=== PATIENT | female | born 1990 ===

== ENCOUNTER 2021-11-26 11:13 | Outpatient (REF) | payer OTHER, SELFPAY ==
[2021-11-26 15:16] LABS: CT PCR NOT DETECTED (Not Detect.); NG PCR NOT DETECTED (Not Detect.)
[2021-11-27 14:19] LABS: BV Int Neg Control Negative (Negative); BV Int Pos Control Positive (Positive)
== END 2021-11-26 11:14 | disposition home or self-care (01) ==
LOC: HO.LAB 11:13
PROVIDERS: Visit Provider Advanced Practice Midwife
DX: Z01.419 Encounter for gynecological examination (general) (routine) without abnormal findings (principal); N94.6 Dysmenorrhea, unspecified
CPT/HCPCS: 87480; 87491; 87510; 87591; 87660; 88142

== ENCOUNTER 2022-01-09 14:17 | Outpatient (REF) | payer OTHER, SELFPAY ==
--- NOTE | ~2022-01-09 | US_ITS ---
EXAMINATION: US PELVIS CLINICAL INFORMATION: Hypertrophy of uterus, last menstrual period 12/27/2021 COMPARISON: None TECHNIQUE: Ultrasound of the pelvis is performed using both transabdominal and transvaginal transducers along with Doppler. Transvaginal imaging is performed due to inadequate visualization transabdominally. FINDINGS: The uterus is heterogeneous and measures 12.9 x 8.6 x 12.6 cm. Multiple uterine fibroids, largest 7.9 x 6.9 x 8.4 cm and 7.0 x 7.0 x 5.5 cm. 3.7 x 3.6 x 4.1 cm fibroid was seen only on transabdominal ultrasound images. Endometrium difficult to visualize due to multiple fibroids. Imaged segment of endometrium was seen only on transabdominal ultrasound images and demonstrates thickness of 1.4 cm. No significant free fluid. Left ovary is unremarkable and measures 3.8 x 1.9 x 2.1 cm, volume 7.9 mL. Right ovary measures 3.9 x 3.8 x 2.8 cm, volume 21.7 mL and was better seen on transabdominal ultrasound images and was difficult to see on transvaginal ultrasound images. 2.4 x 2.6 x 2.7 cm complex right ovarian cyst with thick garcia, possibly a corpus luteum. US/US pelvic and transvaginal IMPRESSION: 1. Enlarged fibroid uterus with largest fibroid 7.9 cm. Uterine volume 731.91 mL. 2. Endometrium difficult to visualize, but imaged segment measures approximately 1.4 cm on transabdominal ultrasound images. 3. Right ovarian 2.7 cm complex cyst may represent a corpus luteum. 4. Unremarkable left ovary. 5. No significant free fluid.
== END 2022-01-09 14:18 | disposition home or self-care (01) ==
LOC: HO.US 14:17
PROVIDERS: Visit Provider Advanced Practice Midwife
DX: N93.9 Abnormal uterine and vaginal bleeding, unspecified (principal); N94.6 Dysmenorrhea, unspecified; N85.2 Hypertrophy of uterus
CPT/HCPCS: 76830; 76856

== ENCOUNTER 2023-05-22 13:30 | Outpatient (AMB) | payer OTHER, SELFPAY ==
[2023-05-22 13:34] VITALS: BP 110/84; PULSE 100; O2SAT 97; BMI 26.9
--- NOTE | 2023-05-22 13:34 | MHC.PC.OV ---
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 Accompanied by: Self / Same As Patient Allergies No Known Allergies Allergy (Verified 05/22/23 13:54) Medication List - Last Reconciled 05/22/23 by Deshaun Stone MD albuterol sulfate 90 mcg/actuation 2 puffs inhalation Q4-6H PRN 30 days cetirizine (Zyrtec) 10 mg PO DAILY PRN dextroamphetamine-amphetamine 30 mg 30 mg PO DAILY 28 days Tobacco use date assessed: 05/22/23 Dental Screening Dental Screen Date: 05/22/23 Did you have a dental visit in the last 12 months?: No Did you have a dental problem in the last 6 months where you did not have access to dental care?: No Was dental information given to patient?: Patient has dentist HPI PE HPI Details Patient comes in today for her annual physical examination - has not been back since July 2021 Patient states that she feels okay but has been experiencing some on and off neck pain and tightness lately States that she has been cracking her neck a lot lately and it feels good doing so Has felt at times recently that she needs a good massage on her neck She denies any history of neck injury or trauma Patient denies any headaches or dizziness Denies any chest pains, no SOB No nausea/vomiting, no abdominal pain No change in bowel habits noted Denies any acute urinary symptoms States that she had a laparoscopic hysterectomy done at [facility] last year in January 2023 for heavy menstrual bleeding and uterine fibroids but they left her ovaries alone Adds that she would like to try switching over to the extended release formulation for her Adderall when her Rx is due for her next refill Recalls taking the ER formulation in the past and does not remember why she switched but now feels that she does not need the medication as much towards the latter part of the day and feels that switching over to the ER version might be better for her [facility] Medical History (Updated 05/22/23 @ 14:20 by Deshaun Stone MD) Overweight (BMI 25.0-29.9) Complex cyst of right ovary Fibroids Abnormal uterine bleeding (AUB) COVID-19 Asthma ADHD (attention deficit hyperactivity disorder) Surgical History (Updated 05/22/23 @ 14:16 by Deshaun Stone MD) S/P laparoscopic hysterectomy (~01/2023) Family History Father High cholesterol Mother No problems noted. Maternal Grandmother Lung cancer Diabetes Maternal Grandfather Diabetes Hypertension Paternal Grandmother Hypertension High cholesterol Paternal Grandfather Asthma Brother No problems noted. 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 1. Little interest or pleasure in doing things: not at all 2. Feeling down, depressed, or hopeless: not at all 3. Trouble falling or staying asleep, or sleeping too much: not at all 4. Feeling tired or having little energy: not at all 5. Poor appetite or overeating: not at all 6. Feeling bad about yourself - or that you are a failure or have let yourself or your family down: not at all 7. Trouble concentrating on things, such as reading the newspaper or watching television: not at all 8. Moving or speaking so slowly that other people could have noticed. Or the opposite - being so fidgety or restless that you have been moving around a lot more than usual: not at all 9. Thoughts that you would be better off or of hurting yourself in some way: not at all Total score: 0 Depression Screening Interpretation: Negative Depression Screening Done: Yes 40861 - PHQ-9 Billing: Yes Source: Developed by Drs. Ricardo Garnett, Ping B.W. Pete Otero and colleagues, with an educational genaro from [employer]. Thrive Questionnaire Date Thrive assessed: 05/22/23 I am a: Patient What is your living situation today?: I have a steady place to live Within the past 12 months, did the food you bought not last and you didn't have the money to get more?: Never true Within the past 12 months, did you worry whether your food would run out before you got money to buy more?: Never true Do you have trouble paying for medicines?: No Do you have trouble getting transportation to medical appointments?: No Do you have trouble paying your heating and electricity bill?: No Do you have trouble taking care of your child, family member or friend?: No Do you have trouble with day-to-day activities such as bathing, preparing meals, shopping, managing finances, etc.?: No Are you currently unemployed and looking for a job?: No Are you interested in more education?: No Please select the resources that you would like help with: None Currently or been in a relationship where the following occur: no concerns reported THRIVE Score: 0 AUDIT C Alcohol Use Questionnaire (AUDIT-C) 1. How often do you have a drink containing alcohol?: 2-3 times a week 2. How many drinks containing alcohol do you have on a typical day when you are drinking?: 1 or 2 3. How often do you have six or more drinks on one occasion?: Never Total Score: 3 Score Reviewed/Action Taken: Yes DESIRAE-7 AMB Questionnaire DESIRAE-7 Date DESIRAE - 7 assessed: 05/22/23 Feeling nervous, anxious, or on edge: 0 = Not at all Not being able to stop or control worryin = Not at all Worrying too much about different things: 0 = Not at all Trouble relaxin = Not at all Being so restless that it is hard to sit still: 0 = Not at all Becoming easily annoyed or irritable: 0 = Not at all Feeling afraid as if something awful might happen: 0 = Not at all Total DESIRAE-7 score (0-4 normal; 5-9 mild; 10-14 moderate; 15-21 severe): 0 Source: Developed by Drs. Ricardo Garnett, Pete Pires and colleagues, with an educational genaro from [employer]. Review of Systems Const Denies chills, Denies fatigue, Denies fever(s), Denies headache(s) and Denies malaise Eyes Denies blurry vision, Denies change in vision, Denies irritation and Denies itchy eyes ENT Denies dysphagia, Denies dizziness, Denies otalgia, Denies headache(s), Denies nasal congestion, Reports neck pain (on and off lately), Denies odynophagia, Denies sinus pain and Denies sore throat Card Denies chest pain, Denies rapid heart rate, Denies irregular heart rhythm, Denies palpitations and Denies dyspnea Resp Denies chest congestion, Denies cough, Denies dyspnea and Denies wheezing GI Denies abdominal pain, Denies bloating, Denies constipation, Denies dysphagia, Denies heartburn, Denies diarrhea, Denies nausea, Denies odynophagia and Denies vomiting Denies hematuria, Denies urinary frequency, Denies dysuria, Denies urinary incontinence and Denies urinary urgency Musc Denies back pain, Denies arthralgias, Denies joint swelling, Denies muscle weakness and Reports neck pain (on and off lately) Skin/Breast Denies breast pain, Denies breast mass, Denies change in pigmentation, Denies lesions, Denies rash and Denies unusual bruising Neuro Denies dizziness, Denies headache(s) and Denies paresthesias Psych Denies anxiety and Denies depression Endo Denies fatigue and Denies palpitations Elpidio/Lymph Denies easy bruising Aller/Immun Denies itchy eyes and Denies wheezing Physical exam (Primary Care) Vital Signs: Last Vital Signs Pulse 100 05/22/23 13:34 BP 110/84 05/22/23 13:34 Pulse Ox 97 05/22/23 13:34 Oxygen Delivery Method Room Air 05/22/23 13:34 BMI result Body Mass Index 26.9 Tobacco/Smoking Status: Tobacco use Status Tobacco use date assessed 05/22/23 05/22/23 13:38 Patient Tobacco Use Status Never used Tobacco 05/22/23 13:38 e-Cigarette/Vaping Use Never Used 05/22/23 13:38 PHQ-9: PHQ-9 Score PHQ-9: Total score 0 05/22/23 13:38 Depression Screening Interpretation: Negative Thrive Assessment: Date of Thrive Assessment Date Thrive assessed 05/22/23 05/22/23 13:38 Currently or been in a relationship where the following occur: no concerns reported Const General: no acute distress, alert and awake Orientation/consciousness: patient oriented x3 HENMT Head: Yes normocephalic and Yes atraumatic Ears: external ears normal, TM's normal bilaterally and EAC's normal General nose exam: No nasal discharge present Face and sinus: Yes normal facial exam and Yes sinuses nontender Teeth and gingiva: dentition normal Throat: Yes posterior oropharynx normal and Yes tonsils normal (no TP congestion) Eyes Eyelids: Yes eyelids normal Conjunctivae: conjunctivae normal Pupils: Equal, round and reactive pupils present EOM: EOMs intact bilaterally Neck Neck: Yes no lymphadenopathy and Yes supple Thyroid: Thyroid normal Resp Auscultation: clear to auscultation bilaterally, no rales and no wheezes Cardio Rate: regular rate Rhythm: regular rhythm Heart sounds: no murmurs GI Palpation (GI): Soft to palpation, nontender and No hepatosplenomegaly present Auscultation: normal bowel sounds General: Yes no CVA tenderness Back/Spine/Pelvis Back: no CVA tenderness Cervical Spine: cervical muscular tenderness Thoracic/Lumbar Spine: thoracic and lumbar spine normal to inspection Skin Lesions: no lesions Rashes: no rashes Neuro General: patient oriented x3, moves all extremities, no focal motor deficits and CN's II-XI intact bilaterally Cranial nerves: Yes Equal, round and reactive pupils present Cognition (Neuro): normal cognition Gait exam (Neuro): Normal gait present Extrem General: Yes no clubbing, cyanosis or edema Assessment and Plan Assessment & Plan (1) Annual physical exam: Code(s): Z00.00 - Encounter for general adult medical examination without abnormal findings Plan: Check labs - patient states that she will try to get these done at [facility] (where she works) [place] She had a hysterectomy done back in January 2023 and reportedly no longer has to keep up with routine pap smears but she will continue to follow up with her senior counsel regularly (2) Asthma: Code(s): J45.909 - Unspecified asthma, uncomplicated Qualifiers: Asthma severity: mild Asthma persistence: intermittent Asthma complication type: uncomplicated Qualified Code(s): J45.20 - Mild intermittent asthma, uncomplicated Plan: Stable - continue Albuterol HFA 2 inhalations every 6 hours only as needed (3) ADHD (attention deficit hyperactivity disorder): Code(s): F90.9 - Attention-deficit hyperactivity disorder, unspecified type Qualifiers: Attention deficit-hyperactivity disorder type: unspecified Qualified Code(s): F90.9 - Attention-deficit hyperactivity disorder, unspecified type Plan: Continue Adderall 30 mg QD but per request, will try switching her back to the XR formulation when her Rx is due for refill in a few weeks (4) Neck pain: Code(s): M54.2 - Cervicalgia Plan: Advised that this is most likely musculoskeletal pain/strain that is a result of poor posture recently and she should try to look into where she is getting into trouble here (at home or at work) Have advised patient NOT to crack her neck as doing so will only lead to problems with her cervical spine in the future Discussed that she can try applying some warm compress to the back of her neck PRN or try some OTC pain patches like Salonpas, Aspercreme or BenGay and using some of the commercially available massage guns can also be helpful She declines offer to provide her with Rx for muscle relaxants (5) Overweight (BMI 25.0-29.9): Code(s): E66.3 - Overweight Plan: Reinforced diet/exercise/lose weight - advised that she has been slowly but steadily gaining some weight over the years Plan To return in 1 year for her next annual physical examination Orders: Orders Comprehensive [place]. Panel Fast Today E78.00 - Pure hypercholesterolemia, unspecified, Z00.00 - Encounter for general adult medical examination without abnormal findings Lipid Panel Today E78.00 - Pure hypercholesterolemia, unspecified, Z00.00 - Encounter for general adult medical examination without abnormal findings UA CC w/rflx Micro + Cult Today R30.0 - Dysuria, Z00.00 - Encounter for general adult medical examination without abnormal findings Vitamin D 25-OH Total Today E55.9 - Vitamin D deficiency, unspecified, Z00.00 - Encounter for general adult medical examination without abnormal findings Complete Blood Count Auto Diff Today D64.9 - Anemia, unspecified, Z00.00 - Encounter for general adult medical examination without abnormal findings TSH reflex Free T4 Today E78.00 - Pure hypercholesterolemia, unspecified, Z00.00 - Encounter for general adult medical examination without abnormal findings Medications: New dextroamphetamine-amphetamine 30 mg ER (Adderall XR) Partial Fill upon patient request. 30 mg PO QAM 30 caps 0RF Discontinued dextroamphetamine-amphetamine 30 mg Discontinued Reason: Doctor's Order 30 mg PO DAILY 28 days 28 tabs 0RF F90.9 - Attention-deficit hyperactivity disorder, unspecified type Coding Level of Care Code Est Pt Prev Care [id number]([id number]) Diagnoses Annual physical exam Z00.00 Mild intermittent asthma without complication J45.20 Asthma severity: mild Asthma persistence: intermittent Asthma complication type: uncomplicated Attention deficit hyperactivity disorder (ADHD), unspecified ADHD type F90.9 Attention deficit-hyperactivity disorder type: unspecified Neck pain M54.2 Overweight (BMI 25.0-29.9) E66.3
== END 2023-05-22 14:09 | disposition home or self-care (01) ==
PROVIDERS: PCP Internal Medicine; Visit Provider Internal Medicine
DX: Z00.00 Encounter for general adult medical examination without abnormal findings (principal); J45.20 Mild intermittent asthma, uncomplicated; F90.9 Attention-deficit hyperactivity disorder, unspecified type; M54.2 Cervicalgia; E66.3 Overweight
CPT/HCPCS: 99395

== ENCOUNTER 2024-04-14 12:06 | Outpatient (AMB) | payer OTHER, SELFPAY ==
--- NOTE | 2024-04-14 12:12 | A.OFFPC_ITS ---
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 Accompanied by: Self / Same As Patient Allergies No Known Allergies Allergy (Verified 04/17/24 16:13) Medication List - Last Reconciled 04/17/24 by Deshaun Stone MD albuterol sulfate 90 mcg/actuation 2 puffs inhalation Q4-6H PRN 30 days cetirizine (Zyrtec) 10 mg PO DAILY PRN dextroamphetamine-amphetamine 30 mg ER (Adderall XR) 30 mg PO QAM Tobacco use date assessed: 05/22/23 Dental Screening Dental Screen Date: 05/22/23 HPI Health 04/11 cyst on sternum HPI Details Patient comes in today for evaluation of a draining cyst over anterior lower chest wall/epigastric area States that she first noticed the presence of the aforementioned cyst about a year ago and that every now and then, it would get inflamed and irritated but would usually subside after a few days without any intervention States that the cyst was again inflamed for the past 2-3 weeks and about 1 week ago, it spontaneously ruptured and drained some purulent fluid She went to a local urgent care facility in [place] a few days ago and was prescribed some unrecalled antibiotics that she is supposed to take for 14 days and which she is still currently on Recalls that she was also advised that she should get a referral from her PCP to have this cyst evaluated and possibly excised Patient states that she feels okay otherwise She denies any fever, headaches or dizziness Denies any chest pains, no shortness of breath No nausea/vomiting, no abdominal pain No change in bowel habits noted [facility] Medical History (Updated 04/14/24 @ 12:28 by Deshaun Stone MD) Overweight (BMI 25.0-29.9) Complex cyst of right ovary Fibroids Abnormal uterine bleeding (AUB) COVID-19 Asthma ADHD (attention deficit hyperactivity disorder) Surgical History S/P laparoscopic hysterectomy (~01/2023) Family History (Updated 04/14/24 @ 12:13 by ROSALVA Ramon) Father High cholesterol Mother No problems noted. Maternal Grandmother Lung cancer Diabetes Maternal Grandfather Diabetes Hypertension Paternal Grandmother Hypertension High cholesterol Paternal Grandfather Asthma Brother No problems noted. 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 Ricardo Garnett, Ping Otero, Pete River and colleagues, with an educational genaro from [employer]. Review of Systems Const Denies fatigue, Denies fever(s) and Denies headache(s) ENT Denies dysphagia, Denies dizziness, Denies headache(s), Denies neck pain and Denies sore throat Card Denies chest pain, Denies palpitations and Denies dyspnea Resp Denies chest congestion, Denies cough and Denies dyspnea GI Denies abdominal pain, Denies constipation, Denies dysphagia, Denies heartburn, Denies diarrhea, Denies nausea and Denies vomiting Denies difficulty voiding, Denies nocturia and Denies dysuria Musc Denies back pain and Denies neck pain Skin/Breast Details: (+) draining cyst over the lower sternal area Denies rash Neuro Denies dizziness and Denies headache(s) Endo Denies fatigue and Denies palpitations Physical exam (Primary Care) Vital Signs: Last Vital Signs BP 110/82 04/14/24 12:15 BMI result Body Mass Index 27.1 Tobacco/Smoking Status: Tobacco use Status Tobacco use date assessed 05/22/23 04/14/24 12:18 Patient Tobacco Use Status Never used Tobacco 04/14/24 12:18 e-Cigarette/Vaping Use Never Used 04/14/24 12:18 Thrive Assessment: Date of Thrive Assessment Date Thrive assessed 05/22/23 04/14/24 12:18 Const General: no acute distress and alert Neck Neck: Yes supple and No lymphadenopathy Thyroid: Thyroid normal Chest Other: (+) unroofed cyst over the lower sternal area of the anterior chest wall, with minimal serous fluid draining from the cyst Resp Auscultation: clear to auscultation bilaterally, no rales and no wheezes Cardio Rate: regular rate Rhythm: regular rhythm Heart sounds: no murmurs GI Palpation (GI): Soft to palpation and nontender Auscultation: normal bowel sounds General: Yes no CVA tenderness Back/Spine/Pelvis Back: no CVA tenderness Skin Rashes: no rashes Extrem General: Yes no clubbing, cyanosis or edema Coding Level of Care Code Est Pt Level 3 (42648) Diagnoses Sebaceous cyst L72.3 Assessment & Plan Assessment & Plan (1) Sebaceous cyst: Code(s): L72.3 - Sebaceous cyst Category: Medical Plan: Cyst is still draining spontaneously some minimal clear fluid Patient is currently on an unrecalled Abx (prescribed by a local urgent care center a few days ago) that she is supposed to take BID x 14 days Will refer her to surgery for further evaluation and consideration for surgical excision of the draining sebaceous cyst on her lower anterior chest wall Plan To return as scheduled in May 2024 for her annual physical examination Orders: Referrals General Surgery Referral L72.3 - Sebaceous cyst
[2024-04-14 12:15] VITALS: BP 110/82; BMI 27.1
== END 2024-04-14 12:35 | disposition home or self-care (01) ==
PROVIDERS: PCP Internal Medicine; Visit Provider Internal Medicine
DX: L72.3 Sebaceous cyst (principal)

== ENCOUNTER → 2024-04-14 12:06 | Outpatient (BNVA) | payer OTHER, SELFPAY | PROVIDERS: PCP Internal Medicine; Visit Provider Internal Medicine ==

== ENCOUNTER 2024-04-28 14:52 | Outpatient (AMB) | payer OTHER, SELFPAY ==
[2024-04-28 14:53] VITALS: BP 112/64; PULSE 87; BMI 27.1
--- NOTE | 2024-04-28 14:53 | MHC.OFFVIS ---
Vital Signs 04/28/24 14:53 Height 5 ft 8 in Weight 178 lb 2 oz BMI 27.1 BP 112/64 Blood Pressure Location Lt brachial Position Sitting Pulse 87 Intake Visit Reasons: Sebaceous cyst Intake Note: This patient presents for Sebaceous cyst. Pt c/o; no concerns. Helper Coordinator Required: No Accompanied by: Other Relationship Allergies No Known Allergies Allergy (Verified 04/28/24 15:00) HPI HPI Sebaceous cyst: Details: 33 year old female referred for a ?sebaceous cyst?. She says she has had this small lump on her abdominal wall epigastric area for about a year. This started as a small pimple. However, this has become swollen twice the past year. At some 0.2 weeks ago, this has started draining She was therefore referred to me by her primary care physician. She denies any trauma to the area. [facility] Medical History Epidermal cyst Overweight (BMI 25.0-29.9) Complex cyst of right ovary Fibroids Abnormal uterine bleeding (AUB) COVID-19 Asthma ADHD (attention deficit hyperactivity disorder) Surgical History S/P laparoscopic hysterectomy (~01/2023) Family History Father High cholesterol Mother No problems noted. Maternal Grandmother Lung cancer Diabetes Maternal Grandfather Diabetes Hypertension Paternal Grandmother Hypertension High cholesterol Paternal Grandfather Asthma Brother No problems noted. 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[employer] Current occupational exposures/hazards: No Sexual orientation: Lesbian/Collier/Homosexual Gender identity: Female Cognitive needs: No Hearing needs: No Vision needs: No Review of Systems Const Denies chills and Denies fever(s) Card Denies chest pain, Denies dyspnea and Denies dyspnea on exertion Resp Denies cough, Denies dyspnea and Denies dyspnea on exertion GI Denies hematochezia and Denies change in bowel habits Denies hematuria Musc Denies back pain and Denies limited range of motion Neuro Denies focal weakness and Denies convulsions Psych Denies depression and Denies mood swings Physical Exam Const General: comfortable and no acute distress Orientation/consciousness: patient oriented x3 Neck Neck: Yes no lymphadenopathy Resp Auscultation: clear to auscultation bilaterally Cardio Rhythm: regular rhythm GI Other: Abdominal wall, upper is note of a well-defined cystic induration measuring about 2.3 cm currently noninflamed, not fluctuant; this is consistent with an epidermal cyst Palpation (GI): Soft to palpation, nontender and no guarding Neuro General: patient oriented x3 Assessment & Plan Assessment & Plan (1) Epidermal cyst: Code(s): L72.0 - Epidermal cyst Category: Medical Plan She has what appears to be an epidermal cyst on the abdominal wall. I explained technique of excision under local anesthesia. I reviewed the risks including but not limited to bleeding, infections, poor healing, as well as the benefits and alternatives. She has given consent. This will be done in the office on her next visit. Coding Level of Care Code New Pt Level 3 (78494) Diagnoses Epidermal cyst L72.0
== END 2024-04-28 15:13 | disposition home or self-care (01) ==
PROVIDERS: PCP Internal Medicine; Referring Provider Internal Medicine; Visit Provider Surgery
DX: L72.0 Epidermal cyst (principal)
CPT/HCPCS: 99203

== ENCOUNTER → 2024-04-28 14:52 | Outpatient (BNVA) | payer OTHER, SELFPAY | PROVIDERS: PCP Internal Medicine; Referring Provider Internal Medicine; Visit Provider Surgery ==

== ENCOUNTER 2024-05-05 15:12 | Outpatient (REF) | payer OTHER, SELFPAY | END 2024-05-05 15:13 | disposition home or self-care (01) | LOC: HO.LNP 15:12 | PROVIDERS: PCP Internal Medicine; Visit Provider Surgery | DX: L72.0 Epidermal cyst (principal) | CPT/HCPCS: 11404; 88304 ==

== ENCOUNTER 2024-05-05 15:12 | Outpatient (AMB) | payer OTHER, SELFPAY ==
[2024-05-05 15:20] VITALS: BMI 27.1
--- NOTE | 2024-05-05 15:20 | MHC.OFFVIS ---
Vital Signs 05/05/24 15:20 Height 5 ft 8 in Weight 178 lb 1.995 oz BMI 27.1 Intake Visit Reasons: excision Sebaceous cyst Intake Note: Office procedure: excision Sebaceous cyst. Podiatric Surgeon Required: No Accompanied by: Self / Same As Patient Allergies No Known Allergies Allergy (Verified 05/05/24 15:21) HPI HPI excision Sebaceous cyst: Details: She is here for excision of an epidermal cyst. [facility] Medical History Epidermal cyst Overweight (BMI 25.0-29.9) Complex cyst of right ovary Fibroids Abnormal uterine bleeding (AUB) COVID-19 Asthma ADHD (attention deficit hyperactivity disorder) Surgical History S/P laparoscopic hysterectomy (~01/2023) Family History Father High cholesterol Mother No problems noted. Maternal Grandmother Lung cancer Diabetes Maternal Grandfather Diabetes Hypertension Paternal Grandmother Hypertension High cholesterol Paternal Grandfather Asthma Brother No problems noted. 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 The area of the induration on the upper abdominal was prepped and draped. Lidocaine 1% was used for local anesthesia. I made an elliptical incision on the skin surrounding this cystic induration with a blade 15. This carried down through the full-thickness of the skin and subcutaneous fat to excise this entire indurated area. The excised area was about 3.8 cm x 3 cm. I closed the incision with full-thickness nylon 3-0 simple interrupted sutures. Dressings were applied. The procedure was completed. She tolerated procedure well. There were no immediate complications. She was given wound care instructions. 86617-oetyt/arms/legs 3.1-4cm Procedure code (CPT) selection complete Assessment & Plan Assessment & Plan (1) Epidermal cyst: Code(s): L72.0 - Epidermal cyst Category: Medical Plan: Excision was done in the office. She was given wound care instructions. She will be seen in the office for removal sutures in about 2 weeks. Coding Level of Care Code Procedure Only Diagnoses Epidermal cyst L72.0 CPT Codes Trunk/Arms/Legs - CPT: 15916-dpgtv/arms/legs 3.1-4cm ([id number])
== END 2024-05-05 15:53 | disposition home or self-care (01) ==
PROVIDERS: PCP Internal Medicine; Visit Provider Surgery
DX: L72.0 Epidermal cyst (principal)
CPT/HCPCS: 11404

== ENCOUNTER 2024-05-19 15:32 | Outpatient (AMB) | payer OTHER, SELFPAY ==
--- NOTE | 2024-05-19 15:31 | A.OFFVIS_ITS ---
Vital Signs 05/19/24 15:39 Height 5 ft 8 in Weight 178 lb 1.995 oz BMI 27.1 Intake Visit Reasons: stitches removal Intake Note: This patient presents for suture removal status post excision Epidermal cyst upper abdomen. Pt c/o; no concerns. Clinical Account Specialist Required: No Accompanied by: Self / Same As Patient Allergies No Known Allergies Allergy (Verified 05/19/24 15:38) HPI HPI stitches removal: Details: She had undergone excision of a cyst from the abdominal wall 2 weeks ago. She denies any complaints at this time. She denies problems with the excision site. [facility] Medical History Epidermal cyst Overweight (BMI 25.0-29.9) Complex cyst of right ovary Fibroids Abnormal uterine bleeding (AUB) COVID-19 Asthma ADHD (attention deficit hyperactivity disorder) Surgical History S/P laparoscopic hysterectomy (~01/2023) Family History Father High cholesterol Mother No problems noted. Maternal Grandmother Lung cancer Diabetes Maternal Grandfather Diabetes Hypertension Paternal Grandmother Hypertension High cholesterol Paternal Grandfather Asthma Brother No problems noted. 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 Her incision is well healed. I removed her sutures. Her path report suggest a ruptured epidermal cyst. She can follow up on a p.r.n. basis. Coding Level of Care Code Global (41393) Diagnoses Epidermal cyst L72.0
[2024-05-19 15:39] VITALS: BMI 27.1
== END 2024-05-19 15:46 | disposition home or self-care (01) ==
PROVIDERS: PCP Internal Medicine; Visit Provider Surgery
DX: L72.0 Epidermal cyst (principal)
CPT/HCPCS: 99024

== ENCOUNTER 2024-05-27 13:40 | Outpatient (AMB) | payer OTHER, SELFPAY ==
--- NOTE | 2024-05-27 13:51 | MHC.PC.OV ---
Vital Signs 05/27/24 13:52 Height 5 ft 8 in Weight 172 lb 6 oz BMI 26.2 BP 110/68 Blood Pressure Location Lt brachial Position Sitting Pulse 105 H Pulse Source Pulse Oximeter Temp 97.5 F Temp Source Skin Pulse Oximetry (%) 99 Oxygen Delivery Method Room Air Intake Visit Reasons: Annual Exam Intake Note: Patient is here today for a physical. Claim Rep Required: No Tape Coater: Not Required per policy Accompanied by: Self / Same As Patient Allergies No Known Allergies Allergy (Verified 05/27/24 14:22) Medication List - Last Reconciled 05/27/24 by Deshaun Stone MD albuterol sulfate 90 mcg/actuation 2 puffs inhalation Q4-6H PRN 30 days cetirizine (Zyrtec) 10 mg PO DAILY PRN dextroamphetamine-amphetamine 30 mg ER (Adderall XR) 30 mg PO QAM Tobacco use date assessed: 05/27/24 Dental Screening Dental Screen Date: 05/27/24 Did you have a dental visit in the last 12 months?: Yes Did you have a dental problem in the last 6 months where you did not have access to dental care?: No Was dental information given to patient?: Patient has dentist HPI Annual Exam HPI Details Patient comes in today for her annual physical examination States that she feels okay although she is still experiencing frequent / recurrent neck pains She denies any recent injury or trauma to her neck Would like to see if she can get some x-rays of her neck/spine to look into her symptoms She recently had 2 cysts removed surgically from her abdominal wall - the cysts turned out to be epidermal cysts on pathology She denies any headaches or dizziness Denies any chest pains, no SOB No nausea/vomiting, no abdominal pain No change in bowel habits noted Denies any acute urinary symptoms PFSH Medical History Allergic rhinitis Epidermal cyst Overweight (BMI 25.0-29.9) Complex cyst of right ovary Fibroids Abnormal uterine bleeding (AUB) COVID-19 Asthma ADHD (attention deficit hyperactivity disorder) Surgical History S/P laparoscopic hysterectomy (~01/2023) Family History Father High cholesterol Mother No problems noted. Maternal Grandmother Lung cancer Diabetes Maternal Grandfather Diabetes Hypertension Paternal Grandmother Hypertension High cholesterol Paternal Grandfather Asthma Brother No problems noted. 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 1. Little interest or pleasure in doing things: not at all 2. Feeling down, depressed, or hopeless: not at all 3. Trouble falling or staying asleep, or sleeping too much: not at all 4. Feeling tired or having little energy: not at all 5. Poor appetite or overeating: not at all 6. Feeling bad about yourself - or that you are a failure or have let yourself or your family down: not at all 7. Trouble concentrating on things, such as reading the newspaper or watching television: more than half the days 8. Moving or speaking so slowly that other people could have noticed. Or the opposite - being so fidgety or restless that you have been moving around a lot more than usual: not at all 9. Thoughts that you would be better off or of hurting yourself in some way: not at all Total score: 2 Depression Screening Interpretation: Negative Depression Screening Done: Yes 21133 - PHQ-9 Billing: Yes Source: Developed by Drs. Ricardo Garnett, Ping Otero, Pete River and colleagues, with an educational genaro from [employer]. Thrive Questionnaire Date Thrive assessed: 05/27/24 I am a: Patient What is your living situation today?: I have a steady place to live Within the past 12 months, did the food you bought not last and you didn't have the money to get more?: Never true Within the past 12 months, did you worry whether your food would run out before you got money to buy more?: Never true Do you have trouble paying for medicines?: No Do you have trouble getting transportation to medical appointments?: No Do you have trouble paying your heating and electricity bill?: No Do you have trouble taking care of your child, family member or friend?: No Do you have trouble with day-to-day activities such as bathing, preparing meals, shopping, managing finances, etc.?: No Are you currently unemployed and looking for a job?: No Are you interested in more education?: No Please select the resources that you would like help with: None Currently or been in a relationship where the following occur: No concerns reported THRIVE Score: 0 AUDIT C Alcohol Use Questionnaire (AUDIT-C) 1. How often do you have a drink containing alcohol?: Never 2. How many drinks containing alcohol do you have on a typical day when you are drinking?: 1 or 2 3. How often do you have six or more drinks on one occasion?: Never Total Score: 0 Score Reviewed/Action Taken: Yes DESIRAE-7 AMB Questionnaire DESIRAE-7 Date DESIRAE - 7 assessed: 05/27/24 Feeling nervous, anxious, or on edge: 1 = Several days Not being able to stop or control worryin = Not at all Worrying too much about different things: 1 = Several days Trouble relaxin = Not at all Being so restless that it is hard to sit still: 1 = Several days Becoming easily annoyed or irritable: 0 = Not at all Feeling afraid as if something awful might happen: 0 = Not at all Total DESIRAE-7 score (0-4 normal; 5-9 mild; 10-14 moderate; 15-21 severe): 3 Source: Developed by Drs. Ricardo Garnett, Ping Otero, Pete River and colleagues, with an educational genaro from [employer]. Review of Systems Const Denies chills, Denies fatigue, Denies fever(s), Denies headache(s) and Denies malaise Eyes Denies blurry vision, Denies change in vision, Denies irritation and Denies itchy eyes ENT Denies dysphagia, Denies dizziness, Denies otalgia, Denies headache(s), Denies nasal congestion, Reports neck pain (recurrent), Denies odynophagia, Denies sinus pain and Denies sore throat Card Denies chest pain, Denies rapid heart rate, Denies irregular heart rhythm, Denies palpitations and Denies dyspnea Resp Denies chest congestion, Denies cough, Denies dyspnea and Denies wheezing GI Denies abdominal pain, Denies bloating, Denies constipation, Denies dysphagia, Denies heartburn, Denies diarrhea, Denies nausea, Denies odynophagia and Denies vomiting Denies hematuria, Denies urinary frequency, Denies dysuria, Denies urinary incontinence and Denies urinary urgency Musc Denies back pain, Denies arthralgias, Denies joint swelling, Denies muscle weakness and Reports neck pain (recurrent) Skin/Breast Denies breast pain, Denies breast mass, Denies change in pigmentation, Denies lesions, Denies rash and Denies unusual bruising Neuro Denies dizziness, Denies headache(s) and Denies paresthesias Psych Denies anxiety and Denies depression Endo Denies fatigue and Denies palpitations Elpidio/Lymph Denies easy bruising Aller/Immun Denies itchy eyes and Denies wheezing Physical exam (Primary Care) Vital Signs: Last Vital Signs Temp 97.5 F 05/27/24 13:52 Pulse 105 H 05/27/24 13:52 BP 110/68 05/27/24 13:52 Pulse Ox 99 05/27/24 13:52 Oxygen Delivery Method Room Air 05/27/24 13:52 BMI result Body Mass Index 26.2 Tobacco/Smoking Status: Tobacco use Status Tobacco use date assessed 05/27/24 05/27/24 13:56 Patient Tobacco Use Status Never used Tobacco 05/27/24 13:56 e-Cigarette/Vaping Use Never Used 05/27/24 13:56 PHQ-9: PHQ-9 Score PHQ-9: Total score 2 05/27/24 13:56 Depression Screening Interpretation: Negative Thrive Assessment: Date of Thrive Assessment Date Thrive assessed 05/27/24 05/27/24 13:56 Currently or been in a relationship where the following occur: No concerns reported Const General: no acute distress, alert and awake Orientation/consciousness: patient oriented x3 HENMT Head: Yes normocephalic and Yes atraumatic Ears: external ears normal, TM's normal bilaterally and EAC's normal General nose exam: No nasal discharge present Face and sinus: Yes normal facial exam and Yes sinuses nontender Teeth and gingiva: dentition normal Throat: Yes posterior oropharynx normal and Yes tonsils normal (no TP congestion) Eyes Eyelids: Yes eyelids normal Conjunctivae: conjunctivae normal Pupils: Equal, round and reactive pupils present EOM: EOMs intact bilaterally Neck Neck: No lymphadenopathy Thyroid: Thyroid normal Resp Auscultation: clear to auscultation bilaterally, no rales and no wheezes Cardio Rate: regular rate Rhythm: regular rhythm Heart sounds: no murmurs GI Palpation (GI): Soft to palpation, nontender and No hepatosplenomegaly present Auscultation: normal bowel sounds General: Yes no CVA tenderness Back/Spine/Pelvis Back: no CVA tenderness Cervical Spine: Cervical spine tenderness (mild) Thoracic/Lumbar Spine: thoracic and lumbar spine normal to inspection Skin Lesions: no lesions Rashes: no rashes Neuro General: patient oriented x3, moves all extremities, no focal motor deficits and CN's II-XI intact bilaterally Cranial nerves: Yes Equal, round and reactive pupils present Cognition (Neuro): normal cognition Gait exam (Neuro): Normal gait present Extrem General: Yes no clubbing, cyanosis or edema Coding Level of Care Code Est Pt Prev Care 18-39y(02804) Diagnoses Annual physical exam Z00.00 Mild intermittent asthma without complication J45.20 Asthma severity: mild Asthma persistence: intermittent Asthma complication type: uncomplicated Allergic rhinitis, unspecified seasonality, unspecified trigger J30.9 Allergic rhinitis trigger: unspecified Allergic rhinitis seasonality: unspecified Neck pain M54.2 Attention deficit hyperactivity disorder (ADHD), unspecified ADHD type F90.9 Attention deficit-hyperactivity disorder type: unspecified Overweight (BMI 25.0-29.9) E66.3 Additional Codes PHQ-9 - 14298 - PHQ-9 Billing: Yes ([id number]) Assessment & Plan Assessment & Plan (1) Annual physical exam: Code(s): Z00.00 - Encounter for general adult medical examination without abnormal findings Category: Medical Plan: Check labs - patient states that she will try to get these done at [facility] (where she works) [place] She had a hysterectomy done back in January 2023 and no longer has to keep up with routine pap smears but she will continue to follow up with her production line operator regularly (2) Asthma: Code(s): J45.909 - Unspecified asthma, uncomplicated Category: Medical Qualifiers: Asthma severity: mild Asthma persistence: intermittent Asthma complication type: uncomplicated Qualified Code(s): J45.20 - Mild intermittent asthma, uncomplicated Plan: Stable/controlled Continue Albuterol HFA 2 inhalations every 6 hours only as needed (3) Allergic rhinitis: Code(s): J30.9 - Allergic rhinitis, unspecified Category: Medical Qualifiers: Allergic rhinitis trigger: unspecified Allergic rhinitis seasonality: unspecified Qualified Code(s): J30.9 - Allergic rhinitis, unspecified Plan: Continue Cetirizine 10 mg QD PRN (4) Neck pain: Code(s): M54.2 - Cervicalgia Category: Medical Plan: Will send her for cervical spine x-rays for further evaluation (5) ADHD (attention deficit hyperactivity disorder): Code(s): F90.9 - Attention-deficit hyperactivity disorder, unspecified type Category: Medical Qualifiers: Attention deficit-hyperactivity disorder type: unspecified Qualified Code(s): F90.9 - Attention-deficit hyperactivity disorder, unspecified type Plan: Continue Adderall 30 mg QD but per request, will try switching her back to the XR formulation when her Rx is due for refill in a few weeks (6) Overweight (BMI 25.0-29.9): Code(s): E66.3 - Overweight Category: Medical Plan: Reinforced diet/exercise/lose weight Plan To return in 1 year for her next annual physical examination Orders: Orders XR cervical spine 3V Today M54.2 - Cervicalgia Comprehensive Allen. Panel Fast Today E78.00 - Pure hypercholesterolemia, unspecified, Z00.00 - Encounter for general adult medical examination without abnormal findings Lipid Panel Today E78.00 - Pure hypercholesterolemia, unspecified, Z00.00 - Encounter for general adult medical examination without abnormal findings UA CC w/rflx Micro + Cult Today R30.0 - Dysuria, Z00.00 - Encounter for general adult medical examination without abnormal findings Complete Blood Count Auto Diff Today D64.9 - Anemia, unspecified, Z00.00 - Encounter for general adult medical examination without abnormal findings TSH reflex Free T4 Today E78.00 - Pure hypercholesterolemia, unspecified, Z00.00 - Encounter for general adult medical examination without abnormal findings Vitamin D 25-OH Total Today E55.9 - Vitamin D deficiency, unspecified, Z00.00 - Encounter for general adult medical examination without abnormal findings
== END 2024-05-27 14:39 | disposition home or self-care (01) ==
PROVIDERS: PCP Internal Medicine; Visit Provider Internal Medicine
DX: Z00.00 Encounter for general adult medical examination without abnormal findings (principal); J45.20 Mild intermittent asthma, uncomplicated; J30.9 Allergic rhinitis, unspecified; M54.2 Cervicalgia; F90.9 Attention-deficit hyperactivity disorder, unspecified type; E66.3 Overweight

== ENCOUNTER → 2024-05-27 13:40 | Outpatient (BNVA) | payer OTHER, SELFPAY | PROVIDERS: PCP Internal Medicine; Visit Provider Internal Medicine | DX: Z00.00 Encounter for general adult medical examination without abnormal findings (principal); J45.20 Mild intermittent asthma, uncomplicated; J30.9 Allergic rhinitis, unspecified; M54.2 Cervicalgia; F90.9 Attention-deficit hyperactivity disorder, unspecified type; E66.3 Overweight; Z68.26 Body mass index [BMI] 26.0-26.9, adult; Z79.899 Other long term (current) drug therapy | CPT/HCPCS: 96127 ==